=== PATIENT | male | born 1995 | race Caucasian/White ===

== ENCOUNTER 2017-05-11 06:07 | Emergency (ER) | payer MEDICAID, OTHER ==
[~2017-05-11] VITALS: Ht 177.8 cm; Wt 60.0 kg
[2017-05-11 06:09] VITALS: Ht 177.8 cm; Wt 60.0 kg
[2017-05-11] MEDS ORDERED: NEOMYC/POLYMYX/BACIT 30 GM OINT TOP ONE (06:30)
[2017-05-11] MEDS ORDERED: DIPHTH/TET/ACEL PERTUSS (ADULT) 0.5 ML VIAL IM* ONE (06:30)
[2017-05-11] MEDS ORDERED: CEFAZOLIN 1 GM INJ IM ONE (06:30)
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
[2017-05-11] MEDS ORDERED: ESCITALOPRAM 10 MG TAB PO ONE (11:30)
[2017-05-11] MEDS ORDERED: DIVALPROEX (EC) 500 MG TAB PO ONE (11:30)
[2017-05-11] MEDS ORDERED: ESCI10TA PO (13:23)
[2017-05-11] MEDS ORDERED: LORA-441 PO (13:23)
[2017-05-11 18:37] VITALS: BP 137/77; PULSE 90; RESP 18; TEMP 98.8
== END 2017-05-11 18:38 ==
LOC: E/R 06:07 → EDBD 06:07 → E/R 18:38
DX: F32.2 Major depressive disorder, single episode, severe without psychotic features (principal); R40.2252 Coma scale, best verbal response, oriented, at arrival to emergency department; F31.0 Bipolar disorder, current episode hypomanic; F15.10 Other stimulant abuse, uncomplicated; S51.812A Laceration without foreign body of left forearm, initial encounter; R45.851 Suicidal ideations; R40.2142 Coma scale, eyes open, spontaneous, at arrival to emergency department; R40.2362 Coma scale, best motor response, obeys commands, at arrival to emergency department; X78.8XXA Intentional self-harm by other sharp object, initial encounter; Z87.891 Personal history of nicotine dependence
CPT/HCPCS: 36415; 80053; 80306; 80307; 81001; 85025; 90471; 90715; 96372; J0690; Z7502; Z7610

== ENCOUNTER 2018-02-25 18:19 | Emergency (ER) | END 2018-02-27 11:14 ==